=== PATIENT | female | born 1980 | race Caucasian/White ===

== ENCOUNTER → 2025-05-04 | Day surgery (SDC) | payer BC ==
[~2025-05-04] MED LIST: ACETAMINOPHEN 1000 MG/100 ML 100 ML IV ONE; DEXAMETHASONE SOD PHOS INJ 4 MG/ML SDV ONE; FAMOTIDINE 20 MG/2 ML VIAL IV ONE; FENTANYL CITRATE/PF 100MCG/2 ML INJ ONE; HYDROMORPHONE 2MG/ML ONE; LIDOCAINE HCL 2% LOCAL INJ 5 ML SDV VIAL INJ ONE; MIDAZOLAM HCL 2 MG/2 ML VIAL ONE; ONDANSETRON HCL INJ 2MG/ML 2ML 2 MG/ML VIAL ONE; PROPOFOL IV EMULSION 10 MG/ML 20 ML VIAL ONE; TYLENOL EXTRA500 M2
[2025-05-04] MEDS: LACTATED RINGER'S 1,000 ML ONE (11:28)
[2025-05-04] MEDS: CEFAZOLIN SODIUM 2 GM ONE (11:28)
[2025-05-04] MEDS: HYDROCODONE/APAP 7.5MG-325MG 1 EA TAB ONE (14:47)
[2025-05-04 15:07] VITALS: BP 128/79; PULSE 78; RESP 17; O2SAT 98
== END | disposition home or self-care (01) ==
LOC: OR 10:17
PROVIDERS: ATTEND Podiatrist Foot & Ankle Surgery
DX: M66.871 Spontaneous rupture of other tendons, right ankle and foot (principal); M77.51 Other enthesopathy of right foot and ankle; K21.9 Gastro-esophageal reflux disease without esophagitis; Z98.84 Bariatric surgery status; Z68.42 Body mass index [BMI] 45.0-49.9, adult; Z01.818 Encounter for other preprocedural examination
CPT/HCPCS: 27675; 29898; 81025; C1713; J0131; J1100; J1171; J1308; J2003; J2250; J2405; J2704; J3010; J7121; C1889